=== PATIENT | male | born 1960 | race Caucasian/White ===

== ENCOUNTER 2024-11-28 16:14 | Emergency (ER) | payer BC ==
[2024-11-28 16:29] VITALS: RESP 16; TEMP 97.9
--- NOTE | 2024-11-28 16:47 | ED ---
General Adult HPI - General Chief complaint: Extremity Injury, Upper Stated complaint: L arm pain Time Seen by Provider: 11/28/24 16:31 Source: patient Mode of arrival: ambulatory Limitations: no limitations - History of Present Illness Initial comments: Patient is previously healthy 63-year-old woman presenting for left shoulder injury. Patient states that last night he was underneath his car fixing his car as he tried to get up, leaned on his left arm while was in a bent position and felt a pop. Since then he has been experiencing pain at the lateral proximal left upper extremity inferior to the shoulder. Pain with abduction and flexion of the left shoulder. No decreased strength, no numbness. No pain medications prior to arrival. Denies radiation to the chest, neck or back. 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 - Related Data Allergies Allergy/AdvReac Type Severity Reaction Status Date / Time No Known Allergies Allergy Verified 11/28/24 16:28 Review of Systems ROS Statement: Those systems with pertinent positive or pertinent negative responses have been documented in the HPI. ROS Other: All systems not noted in ROS Statement are negative. Past Medical History Additional Past Medical History / Comment(s): kidney stones Past Surgical History: Tonsillectomy Additional Past Surgical History / Comment(s): vasectomy Smoking Status: Never smoker Past Alcohol Use History: Occasional Past Drug Use History: None Reported General Exam - General Exam Comments Initial Comments: PE: CONSTITUTIONAL: No apparent distress, well appearing SKIN: Warm, dry, no jaundice, hives or petechiae, no erythema or bruising EYES: Pupils are equally round, extraocular movements intact without nystagmus, clear conjunctiva, non-icteric sclera HENT: Normocephalic, atraumatic, moist mucus membranes, oropharynx clear without exudates NECK: , Full range of motion, normal appearance PULMONARY: respirations unlabored, equal chest rise and chest fall CARDIOVASCULAR: extremities well perfused, 2+ radial pulse LUE MUSCULOSKELETAL: Extremities have no gross deformity, no edema, redness, or swelling. Pain with abduction and flexion of the left shoulder, able to abduct to about 80 degrees, able to flex to 90 degrees, otherwise full range of motion of the left upper extremity, neurovascularly intact with 2+ radial pulse, sensation to light touch intact throughout the left upper extremity including the deltoid region, excellent tank tender strength, no bony tenderness to palpation or deformity NEUROLOGIC:_a/o x 3, GCS 15, normal mentation and speech. Moves all extremities x 4 without motor or sensory deficit, w/ exception of above PSYCHIATRIC:_normal mood and affect, thought process is clear and linear Limitations: no limitations Course Vital Signs 11/28/24 11/28/24 16:23 18:08 Temperature 97.9 F Pulse Rate 63 60 Respiratory 16 16 Rate Blood Pressure 141/86 145/96 O2 Sat by Pulse 97 100 Oximetry Medical Decision Making - Medical Decision Making Was pt. sent in by a medical professional or institution (, PA, COST CONTROL SPECIALIST, urgent care, hospital, or alf...) When possible be specific @ -No Did you speak to anyone other than the patient for history (EMS, parent, family, police, friend...)? What history was obtained from this source @ -No Did you review nursing and triage notes (agree or disagree)? Why? @ -I reviewed and agree with nursing and triage notes Were old charts reviewed (outside hosp., previous admission, EMS record, old EKG, old radiological studies, urgent care reports/EKG's, alf records)? Report findings @ -Medical records were not reviewed Differential Diagnosis (chest pain, altered mental status, abdominal pain women, abdominal pain men, vaginal bleeding, weakness, fever, dyspnea, syncope, headache, dizziness, GI bleed, back pain, seizure, CVA, palpatations, mental health, musculoskeletal)? @ -Differential Musculoskeletal Muscular strain, contusion, ligament sprain, fracture, arthritis, septic arthritis, bursitis, cellulitis, muscle spasm, nerve compression, DVT, arterial occlusion, herpes zoster, electrolyte abnormality, tumor.... This is not meant to be in all inclusive list EKG interpreted by me (3pts min.). @ -As above X-rays interpreted by me (1pt min.). Personally reviewed XR's, I see no evidence of fracture or dislocation, agree with radiologist interpretation, did note bony projection at distal humerus described by radiologist as likely osteochrondroma CT interpreted by me (1pt min.). @ -None done U/S interpreted by me (1pt. min.). @ -None done What testing was considered but not performed or refused? (CT, X-rays, U/S, labs)? Why? @ -None What meds were considered but not given or refused? Why? @ -None Did you discuss the management of the patient with other professionals (professionals i.e. , PA, COST CONTROL SPECIALIST, lab, RT, psych nurse, social media community manager, program director substance abuse, teacher, booking officer, mattress spring encaser)? Give summary @ -No Was smoking cessation discussed for >3mins.? @ -No Was critical care preformed (if so, how long)? @ -No Were there social determinants of health that impacted care today? How? (Homelessness, low income, unemployed, alcoholism, drug addiction, transportation, low edu. Level, literacy, decrease access to med. care, group home, rehab)? @ -No Was there de-escalation of care discussed even if they declined (Discuss DNR or withdrawal of care, Hospice)? @ -No What co-morbidities impacted this encounter? (DM, HTN, Smoking, COPD, CAD, Cancer, CVA, ARF, Chemo, Hep., AIDS, mental health diagnosis, sleep apnea, morbid obesity)? @ -None Was patient admitted / discharged? Hospital course, mention meds given and route, prescriptions, significant lab abnormalities, going to OR and other pertinent info. @ Discharged- this is a pleasant 63 gentleman presenting for left upper extremity injury. On my assessment well-appearing in no acute distress. No bony tenderness to patient or deformity. Strength intact. Differential diagnoses above, top considerations include rotator cuff injury, fracture, sprain, bicep tendon rupture. Offered patient pain control however he politely declined. Plain films ultimately negative for acute traumatic process. Did note possible osteochondroma on humerus. Updated pt to these findings and discussed with him the importance of following up with orthopedics regarding this finding and today's visit. Pt states he is aware of osteochondroma. He was placed in a shoulder immobilizer out of concern for bicep tendon injury. In my medical judgment there is currently no evidence of an immediate life-threatening or surgical condition. Discharge is therefore indicated at this time. Discharge treatment instructions, follow up instructions, and appropriate [facility] return precautions were discussed with the patient and/or medical decision maker. Patient and/or medical decision maker expressed understanding of and agreed with the treatment plan, follow up instructions, and emergency department return precaution. All patient's and/or medical decision maker's questions were answered. The patient was therefore instructed to return to the ED for any changes in symptoms, persistent symptoms, inability to obtain proper follow-up or for any further concerns. Patient received verbal and written instructions for this condition. Undiagnosed new problem with uncertain prognosis? @ -No Drug Therapy requiring intensive monitoring for toxicity (Heparin, Nitro, Insulin, Cardizem)? @ -No Were any procedures done? @ -No Diagnosis/symptom? @Left arm injury, strain of LUE Acute, or Chronic, or Acute on Chronic? @ acute Uncomplicated (without systemic symptoms) or Complicated (systemic symptoms)? @ uncomplicated Side effects of treatment? @ -No Exacerbation, Progression, or Severe Exacerbation? @ -No Poses a threat to life or bodily function? How? (Chest pain, [place], ID, pneumonia, PE, COPD, DKA, ARF, appy, cholecystitis, CVA, Diverticulitis, Homicidal, Suicidal, threat to staff... and all critical care pts) @ -No Disposition Clinical Impression: Osteochondroma, Strain of left upper arm Disposition: HOME SELF-CARE Condition: Good Instructions (If sedation given, give patient instructions): Tendon Rupture (ED), Biceps Tenodesis (DC) Additional Instructions: Every disease is a spectrum and a small chance still exists that a serious condition could develop, for this reason, please monitor yourself closely for new, changing or worsening symptoms, that do not begin to improve in the next 48 hours, fever, inability to tolerate/keep down fluids or your medications, inability to follow up with outpatient providers as instructed and should you experience these symptoms or should you have any further concerns for your wellbeing please return to the ED or call 911 immediately. Your pain can be treated with ibuprofen and acetaminophen. You can take up to 400-600 mg of ibuprofen (Advil, Motrin) 3 times daily (every 8 hours) but can also use lower doses if this relieves your pain. Some people prefer naproxen (Aleve, Naprosyn) which can be taken in doses of 500 mg up to twice a day. Do not take both of these medicines together, and do not combine either with ketorolac (Toradol), meloxicam (Mobic), or indomethacin (Tivorbex). Some people can develop stomach discomfort with higher doses of either ibuprofen or naproxen, if this develops decrease your dose or stop taking it. If you need to take this dose daily for more than a week, please schedule an appointment for re-evaluation with your PCP. Please take these medications with food. You can take up to 1000 mg of acetaminophen (Tylenol) every 6 hours. Be careful as this is included in some medicines like Nyquil, Larose, Percocet, Vicodin, STANBACK, Goody's Powders, and Excedrin. You can also use lidocaine patches for topical pain. You can purchase 4% patches over the counter at most drug stores. These can be helpful for pain from your muscles or bones. Please try to keep your arm in the provided sling as much as possible until seen by orthopedics, Dr. Sue. Please follow up regarding osteochondroma and possible bicep injury. Please ice your affected extremity every 3-4 hours for 20 minutes as much as you are able. Please monitor closely for any new swelling, numbness, uncontrolled pain please return to the ER should you experience any of these. PLEASE call your primary care physician as soon as possible to arrange / discuss plan for followup appointment. Appointment in the next 1-3 days is strongly encouraged if possible. PLEASE let us know here before you leave if there is anything further we can do to be of any assistance. Take care and feel Better! Is patient prescribed a controlled substance at d/c from ED?: No Referrals: None,Stated [Primary Care Provider] - 1-2 days
--- NOTE | 2024-11-28 17:03 | XR ---
EXAMINATION TYPE: XR shoulder complete LT DATE OF EXAM: 11/28/2024 4:57 PM INDICATION: Patient age:Male; 63 years old; Reason for study: getting up, felt pop, pain in lat prox shoulder; pain COMPARISON: Left humerus radiograph the same day. TECHNIQUE: The left shoulder was examined in AP, internally rotated and scapular Y projections. . FINDINGS: No evidence of acute osseous pathology, joint dislocation, or soft tissue swelling. Mild AC joint art hropathy. The remaining portions of the visualized chest are unremarkable. IMPRESSION: 1. No acute osseous pathology. 2. Mild AC joint arthropathy. [facility], , 11/28/2024 5:01 PM
--- NOTE | 2024-11-28 17:06 | XR ---
EXAMINATION TYPE: XR humerus LT DATE OF EXAM: 11/28/2024 4:57 PM INDICATION: Patient age:Male; 63 years old; Reason for study: getting up, felt pop, pain in lat prox shoulder; PHH. pain COMPARISON: Left shoulder and elbow radiographs of the same day. TECHNIQUE: The left humerus was examined in AP and lateral projections. FINDINGS: No evidence of acute osseous pathology, joint dislocation, or soft tissue swelling. Mild AC joint arthropathy. Distal humeral metadiaphysis 9 mm well-corticated osseous projection along the ul real aspect. The remaining portions of the visualized chest are unremarkable. IMPRESSION: 1. No acute osseous pathology. 2. Mild AC joint arthropathy. 3. Supracondylar osteochondroma. [facility], , 11/28/2024 5:04 PM
--- NOTE | 2024-11-28 17:08 | XR ---
EXAMINATION TYPE: XR elbow complete LT DATE OF EXAM: 11/28/2024 4:57 PM INDICATION: Patient age:Male; 63 years old; Reason for study: getting up,felt pop, pain prox LUE, bicep rupture?; PHH. pain COMPARISON: Left humerus radiograph the same date. TECHNIQUE: The left elbow was examined in AP, lateral, and oblique projections. FINDINGS: No evidence of any acute osseous pathology, joint dislocation, or soft tissue swelling is n oted. Distal humeral metadiaphysis 9 mm well-corticated osseous projection along the ulnar aspect. N o evidence of joint effusion is present. IMPRESSION: 1. No evidence of acute fracture. 2. Supracondylar osteochondroma. [facility], , 11/28/2024 5:06 PM
[2024-11-28 18:09] VITALS: BP 145/96; PULSE 60
== END 2024-11-28 18:09 | disposition home or self-care (01) ==
LOC: EC 16:14
DX: S46.012A Strain of muscle(s) and tendon(s) of the rotator cuff of left shoulder, initial encounter (principal); D16.9 Benign neoplasm of bone and articular cartilage, unspecified; X50.9XXA Other and unspecified overexertion or strenuous movements or postures, initial encounter
CPT/HCPCS: 99284

== ENCOUNTER → 2024-12-04 | Outpatient (CLI) | payer BC ==
--- NOTE | 2024-12-08 21:52 | MR ---
EXAMINATION TYPE: MR shoulder LT wo con DATE OF EXAM: 12/04/2024 9:06 PM COMPARISON: Left shoulder x-ray 6 days ago CLINICAL INDICATION: Male, 63 years old with history of M25.512, [place] a pop in LT shoulder with pain in bicep but now pain only in LT shoulder joint x6 days ago IV Contrast: cc (None if empty) TECHNIQUE: Multiplanar, multisequence imaging of the left shoulder is performed without contrast. FINDINGS: Rotator Cuff: Intact infraspinatus tendon. Increased signal in the distal supraspinatus tendon. Focal full-thickness tear involving anterior 1/5 fibers sagittal image 6. Marked thickening with wavy cont our to the subscapularis tendon with surrounding fluid. The mass extends into the posterior muscle fi bers. There is mild to moderate generalized muscular atrophy. Acromioclavicular Joint: Moderate to severe narrowing and moderate spurring. Mild to moderate capsula r hypertrophy. Type II downsloping acromion. Glenohumeral Joint: Moderate size joint effusion. Narrowing is seen. No significant spurring. Labrum: Increased signal superior labrum consistent with degenerative tear. Biceps Tendon: The long head of biceps is in normal location within bicipital groove. There is increa sed signal. There is poor visualization of intracapsular portion and presumed tear from the labral an chor. Bone marrow signal: Heterogeneous increased T2 signal at the acromioclavicular joint likely product o f degenerative change. Other: No additional significant abnormality is appreciated. IMPRESSION: 1. Tendinosis and partial tearing of the supraspinatus tendon. More significant tearing of the subsc apularis tendon is present. Acute component is felt present. 2. Superior labral tear. Significant tear of the long head of biceps tendon. Likely tear from the lab ral anchor. 3. At least moderate degenerative changes are seen as detailed above. [facility], , 12/08/2024 9:50 PM
== END | disposition home or self-care (01) ==
LOC: RADMRIMAIN 20:45
PROVIDERS: ATTEND Orthopaedic Surgery
DX: M75.112 Incomplete rotator cuff tear or rupture of left shoulder, not specified as traumatic (principal); M19.012 Primary osteoarthritis, left shoulder